=== PATIENT | female | born 1955 | race American Indian/Alaskan Native ===

== ENCOUNTER 2016-07-03 00:12 | Emergency (ER) | payer MEDICARE ==
[2016-07-03 02:44] LABS: Basophils % (Auto) 0.4 % (0.0-1.8); Eosinophils % (Auto) 0.4 % (0.0-4.3); Hematocrit 41.2 % (30.3-42.9); Hemoglobin 13.3 gm/dl (10.1-14.3); Mean Corpuscular HGB Conc 32 % (30-34); Mean Corpuscular Hemoglobin 26 pg (28-32); Mean Corpuscular Volume 82 fl (79-97); Platelet Count 246 K/mm3 (140-440); Red Blood Count 5.04 M/mm3 (3.65-5.03); Red Cell Distribution Width 15.4 % (13.2-15.2); White Blood Count 5.2 K/mm3 (4.5-11.0)
[2016-07-03 02:48] LABS: Anion Gap 20 mmol/L; Blood Urea Nitrogen 17 mg/dL (7-17); Calcium 9.3 mg/dL (8.4-10.2); Carbon Dioxide 26 mmol/L (22-30); Chloride 98.7 mmol/L (98-107); Glucose 98 mg/dL (65-100); Potassium 4.6 mmol/L (3.6-5.0); Sodium 140 mmol/L (137-145)
[2016-07-03 04:16] VITALS: BP 156/63
[2016-07-03 04:55] LABS: Bacteria,Urine 2+ /HPF (Negative); Bilirubin,Urine NEG (Negative); Blood,Urine NEG (Negative); Ketones,Urine NEG (Negative); Leukocyte Esterase,Urine NEG (Negative); Mucus,Urine 1+ /HPF; Nitrite,Urine NEG (Negative); Protein,Urine <15 mg/dL mg/dL (Negative); Urobilinogen,Urine < 2.0 mg/dL (<2.0)
[2016-07-03 04:58] LABS: INR 0.91 (0.87-1.13)
--- NOTE | 2016-07-03 06:42 | Emergency Department Report ---
HPI - General Chief Complaint: Chest Pain Time Seen by Provider: 07/03/16 06:17 - HPI HPI: 60-year-old female presents to the emergency department from home with complaint of pain to the upper abdomen and lower chest has been going on for the past 4-5 days intermittently. This morning the pain was about 9 out of 10 and she felt like she had to remove brought to get relief. Associated with some shortness of breath and some nausea without vomiting. She thinks began after the patient received a steroid shot in her left knee for a knee sprain a few days ago. Patient has a history of arthritis, borderline diabetes, history of pancreatitis, degenerative disc disease. 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 She tried some Benadryl and some lemon with a lot of her symptoms without much relief. No recent travel or sick contacts at home. ED Past Medical Hx - Past Medical History Previous Medical History?: Yes Hx Hypertension: Yes (losartan) Hx Congestive Heart Failure: No Hx Diabetes: Yes (BORDERINE BUT TAKES NO MEDS) Hx Arthritis: Yes Hx Asthma: No Hx COPD: No Hx HIV: No Additional medical history: Pancreatitis, degenerative disc disease, Hernia - Surgical History Hx Cholecystectomy: Yes Additional Surgical History: arthroscopy right knee, tubal - Social History Smoking Status: Unknown if ever smoked - Medications Home Medications: Home Medications Medication Instructions Recorded Confirmed Last Taken Type Losartan [Cozaar] 12.5 mg PO QDAY 07/01/13 10/12/14 10/11/14 History Aspirin BABY CHEW TAB 81 mg PO DAILY 10/06/14 10/12/14 10/08/14 History ED Review of Systems ROS: Stated complaint: DIFFICULTY IN BREATHING, LOWER BACK,NECK, LEG PAIN Other details as noted in HPI Comment: All other systems reviewed and negative Constitutional: denies: chills, fever Eyes: denies: eye pain, eye discharge, vision change ENT: denies: ear pain, throat pain Respiratory: shortness of breath. denies: cough Cardiovascular: chest pain. denies: palpitations Gastrointestinal: abdominal pain, nausea. denies: vomiting Genitourinary: denies: urgency, dysuria, discharge Musculoskeletal: denies: back pain, joint swelling, arthralgia Skin: denies: rash, lesions Neurological: denies: headache, weakness, paresthesias Physical Exam - Physical Exam Vital Signs: Vital Signs 07/03/16 07/03/16 07/03/16 01:13 02:57 03:01 Temperature 98.9 F Pulse Rate 93 H 76 72 Respiratory 20 13 16 Rate Blood Pressure 159/85 168/63 O2 Sat by Pulse 97 97 Oximetry 07/03/16 07/03/16 03:30 04:00 Temperature Pulse Rate 68 66 Respiratory 22 23 Rate Blood Pressure 155/63 156/63 O2 Sat by Pulse 97 97 Oximetry Physical Exam: GENERAL: The patient is well-developed well-nourished. HEENT: Normocephalic. Atraumatic. Extraocular motions are intact. Patient has moist mucous membranes. Pupils equal reactive to light bilaterally. NECK: Supple. Trachea is midline. CHEST/LUNGS: Clear to auscultation. There is no respiratory distress noted. Midsternal chest pain is reproducible to palpation of the chest wall. HEART/CARDIOVASCULAR: Regular. There is no tachycardia. There is no gallop rub or murmur. ABDOMEN: Abdomen is soft. Patient has tenderness to palpation to the upper quadrants of the abdomen. No guarding rebound tenderness. Patient has normal bowel sounds. There is no abdominal distention. SKIN: Skin is warm and dry. NEURO: The patient is awake, alert, and oriented. The patient is cooperative. The patient has no focal neurologic deficits. The patient has normal speech. MUSCULOSKELETAL: There is no tenderness or deformity. There is no limitation range of motion. There is no evidence of acute injury. ED Course Vital Signs 07/03/16 07/03/16 07/03/16 01:13 02:57 03:01 Temperature 98.9 F Pulse Rate 93 H 76 72 Respiratory 20 13 16 Rate Blood Pressure 159/85 168/63 O2 Sat by Pulse 97 97 Oximetry 07/03/16 07/03/16 03:30 04:00 Temperature Pulse Rate 68 66 Respiratory 22 23 Rate Blood Pressure 155/63 156/63 O2 Sat by Pulse 97 97 Oximetry ED Medical Decision Making - Lab Data Result diagrams: 07/03/16 02:10 07/03/16 02:10 - EKG Data -: EKG Interpreted by Nh EKG shows normal: sinus rhythm (with sinus arrhythmia), axis (LAD), intervals, QRS complexes (LVH), ST-T waves Rate: normal - EKG Data When compared to previous EKG there are: previous EKG unavailable Interpretation: other (past rhythm with sinus arrhythmia, left axis deviation, LVH) - Radiology Data Radiology results: image reviewed interpreted by me: Chest x-ray did not show any acute process. Heart is normal shape and size. No effusions. No pneumothorax. No signs of pneumonia seen. - Medical Decision Making 60-year-old female presents with a 4-5 day history of pain to the upper abdomen and lower chest as well as some shortness of breath and nausea without vomiting. Patient had more of a chest pain workup through triage. Thus far she has had normal-appearing labs include negative troponins 2. EKG does not show any signs of illness elevation AK. Chest x-ray does not show any acute process. However when I see the patient, she also has involvement of the upper abdomen and it could be something referred such as pancreatitis. My plan was to order liver function tests, lipase, d-dimer to rule out PE, get an abdominal x-ray, and then reevaluate for disposition. However the patient says she is unable to stand hospital for further workup and prefers to follow-up with her primary care doctor and specialists. I explained to the patient that without any further labs or imaging, I cannot rule out any acute or emergent conditions within the abdomen or chest and that there are still possibilities for atypical AK or surgical abdomen. The patient understands the risks of leaving AGAINST MEDICAL ADVICE but says that she cannot stay and therefore signed the form to leave AMA. She understands she can return if she changes her mind or with any acute distress. - Differential Diagnosis AK, PE, CHF, pancreatitis Critical Care Time: No Critical care attestation.: If time is entered above; I have spent that time in minutes in the direct care of this critically ill patient, excluding procedure time. ED Disposition Clinical Impression: Chest pain Qualifiers: Chest pain type: unspecified Qualified Code(s): R07.9 - Chest pain, unspecified Abdominal pain Qualifiers: Abdominal location: upper abdomen, unspecified Qualified Code(s): R10.10 - Upper abdominal pain, unspecified Hypertension Qualifiers: Hypertension type: essential hypertension Qualified Code(s): I10 - Essential ( primary) hypertension Disposition: LEFT AGAINST MEDICAL ADVICE Is pt being admited?: No Condition: Stable Instructions: Chest Pain (ED), Acute Abdominal Pain (ED), Hypertension (ED) Additional Instructions: Please follow up with your primary care doctor, human resources office assistant and 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 Return to the emergency department if you change your mind about further evaluation of any acute distress. Referrals: PRIMARY CARE, [Primary Care Provider] - 3-5 Days Forms: AMA Form Time of Disposition: 06:42
--- NOTE | 2016-07-03 09:20 | XRay Report ---
CHEST 2 VIEWS INDICATION: Shortness of breath. COMPARISON: None similar. FINDINGS: PA and lateral chest radiographs demonstrate normal cardiomediastinal silhouette. No pleural effusions or CHF, though slight right lower lung scarring or atelectasis possible. Approximately 4 mm possible calcified granuloma may project about the right cardiophrenic angle on the frontal view. Demineralized bones with various bony degenerative changes. CONCLUSION: No acute chest process with few incidental findings, as above. Please also correlate with prior chest imaging, if available. Thank you for the opportunity to participate in this patient's care.
== END 2016-07-03 07:00 | disposition left against medical advice (07) ==
LOC: ED 00:12
DX: R07.9 Chest pain, unspecified (principal); R10.10 Upper abdominal pain, unspecified; I10 Essential (primary) hypertension; E11.9 Type 2 diabetes mellitus without complications; M19.90 Unspecified osteoarthritis, unspecified site; Z79.82 Long term (current) use of aspirin
CPT/HCPCS: 36415; 71020; 80048; 81001; 84484; 85025; 85610; 93005; 93010

== ENCOUNTER 2016-07-10 11:13 | Inpatient (IN) | payer MEDICARE ==
--- NOTE | 2016-07-10 12:05 | Emergency Department Report ---
Entered by JUVENAL CLAY, acting as scribe for CAMILO MCKENZIE PA. Chief Complaint: Chest Pain Stated Complaint: CHEST AND BACK PAIN Time Seen by Provider: 07/10/16 11:54 - HPI History of Present Illness: 60 y/o female presents c/o pressure pain on her chest that started 3 days ago but worsened this morning. Sx include difficulty swallowing, SOB, abd pain, jaw pain, cough, fever at night, chills at night and muscle aches but denies dysuria , N/V. Pt notes being seen at [facility], but they directed her to come here. - ROS Review of Systems: as noted in HPI - Exam Vital Signs: Vital Signs 07/10/16 11:26 Temperature 98 F Pulse Rate 88 Respiratory 16 Rate Blood Pressure 168/96 O2 Sat by Pulse 97 Oximetry Physical Exam: General:60 y/o female in no acute distress. Well-developed, well-nourished. CV: Regular rate and rhythm. No murmurs rubs or gallops. Lungs: Clear to auscultation bilaterally. Abdomen: No tenderness to palpation. No guarding or rebound tenderness. Normal bowel sounds. Mini Neuro: Alert and oriented 3. MSE screening note: Focused history and physical exam performed. Due to findings the following was ordered: ED Disposition for MSE Condition: Stable This documentation as recorded by the scribe,JUVENAL CLAY,accurately reflects the service I personally performed and the decisions made by me,CAMILO MCKENZIE PA.
[2016-07-10 13:55] LABS: Basophils % (Auto) 0.1 % (0.0-1.8); Eosinophils % (Auto) 0.9 % (0.0-4.3); Hematocrit 40.1 % (30.3-42.9); Hemoglobin 12.8 gm/dl (10.1-14.3); Mean Corpuscular HGB Conc 32 % (30-34); Mean Corpuscular Hemoglobin 26 pg (28-32); Mean Corpuscular Volume 82 fl (79-97); Platelet Count 331 K/mm3 (140-440); Red Blood Count 4.87 M/mm3 (3.65-5.03); Red Cell Distribution Width 14.9 % (13.2-15.2); White Blood Count 8.4 K/mm3 (4.5-11.0)
--- NOTE | 2016-07-10 14:03 | Ultrasound Report ---
Abdominal ultrasound. History: Upper quadrant pain. Findings: The abdominal aorta and liver are normal. The gallbladder has been removed. The common bile duct is normal in caliber. The kidneys are normal in size and configuration with no evidence of mass or hydronephrosis. The spleen is unremarkable. The pancreas is unremarkable. Impression: Negative study status post cholecystectomy.
[2016-07-10 14:11] LABS: Anion Gap 16 mmol/L; BUN/Creatinine Ratio 16.66; Blood Urea Nitrogen 15 mg/dL (7-17); Calcium 9.6 mg/dL (8.4-10.2); Carbon Dioxide 29 mmol/L (22-30); Chloride 104.3 mmol/L (98-107); Glucose 74 mg/dL (65-100); Sodium 145 mmol/L (137-145)
--- NOTE | 2016-07-10 19:30 | Emergency Department Report ---
ED Chest Pain HPI - General Chief Complaint: Chest Pain Stated Complaint: CHEST AND BACK PAIN Time Seen by Provider: 07/10/16 12:01 Source: patient, old records reviewed (patient was here 07/03/2016 with the same symptoms and the ED left AGAINST MEDICAL ADVICE) Mode of arrival: Ambulatory Limitations: No Limitations - History of Present Illness Initial Comments: 60-year-old female with a past medical history of hypertension, arthritis, borderline COPD, previous pancreatitis, degenerative disease and previous cholecystectomy presents to the hospital complains of chest pain and abdominal pain. Symptoms 3 weeks intermittently worse for the last 3 days. Patient states that the pain feels like a tightness around her lower chest and upper abdomen area. Intermittent without aggravating or alleviating factors. Moderate to severe in intensity and described as "a ton of bricks sitting on my chest this morning". Pain episodes lasts greater than 30 minutes at a time. Positive associated shortness of breath episodes and patient woke up sweating this morning. She denies nausea, vomiting, recent travel, or edema.. 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 Patient has had ongoing left posterior lower leg pain since being struck in the rear of the leg by a shopping cart and a fall over the last several weeks. Pain is worse with palpation and movement. Patient reports a negative exercise stress test done as outpatient last year. PMD: Dr. Joselito Schultz garbage truck dispatcher: [facility] Previous medical record reviewed and patient presented to the ER July 03 for similar symptoms, seen by Dr. 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 - Related Data Home Medications Medication Instructions Recorded Confirmed Last Taken RX: Losartan [Cozaar] 12.5 mg PO QDAY 07/01/13 10/12/14 10/11/14 Aspirin BABY CHEW TAB 81 mg PO DAILY 10/06/14 10/12/14 10/08/14 Allergies Allergy/AdvReac Type Severity Reaction Status Date / Time adhesive Allergy Hives Verified 07/01/13 05:58 codeine Allergy Hives Verified 07/01/13 05:58 iodine Allergy Hives Verified 07/01/13 05:58 Penicillins Allergy Hives Verified 07/01/13 05:58 steroids Allergy Hives Uncoded 07/01/13 05:58 ARYAN score - Aryan Score Age > 65: (0) No Aspirin use within the Past 7 Days: (1) Yes 3 or more CAD Risk Factors: (1) Yes 2 or more Angina events in past 24 hrs: (1) Yes Known CAD with more than 50% Stenosis: (0) No Elevated Cardiac Markers: (0) No ST Deviation Greater than 0.5mm: (0) No ARYAN Score: 3 ED Review of Systems ROS: Stated complaint: CHEST AND BACK PAIN Other details as noted in HPI Comment: All other systems reviewed and negative Other: Constitutional: No fevers chills Eyes: No eye pain visual changes ENT: No ear pain or throat pain Neck: Denies pain Respiratory: Denies cough wheezing Cardiovascular: Denies palpitations, syncope GI: Denies abdominal pain, nausea, vomiting, diarrhea : Denies dysuria Musculoskeletal: Denies back pain, Skin: Denies rash, lesions, erythema Neurologic: Denies headache, numbness, weakness Psychiatric: Denies suicidal ideation, hallucinations ED Past Medical Hx - Past Medical History Previous Medical History?: Yes Hx Hypertension: Yes (losartan) Hx Congestive Heart Failure: No Hx Diabetes: Yes (BORDERINE BUT TAKES NO MEDS) Hx Arthritis: Yes Hx Asthma: No Hx COPD: No Hx HIV: No Additional medical history: Pancreatitis, degenerative disc disease, Hernia - Surgical History Past Surgical History?: Yes Hx Cholecystectomy: Yes Additional Surgical History: arthroscopy right knee, tubal - Social History Smoking Status: Never Smoker Substance Use Type: None - Medications Home Medications: Home Medications Medication Instructions Recorded Confirmed Last Taken Type RX: Losartan [Cozaar] 12.5 mg PO QDAY 07/01/13 10/12/14 10/11/14 History Aspirin BABY CHEW TAB 81 mg PO DAILY 10/06/14 10/12/14 10/08/14 History ED Physical Exam - General Limitations: No Limitations - Other Other exam information: General: No limitations, patient is alert in no acute distress Head exam: Atraumatic, normocephalic Eyes exam: Normal appearance, pupils equal reactive to light, extraocular movements intact ENT: Moist mucous membrane, normal oropharynx Neck exam: Normal inspection, full range of motion, no meningismus nontender Respiratory exam: Clear to auscultation bilateral, no wheezes, rales, crackles. Reproducible tenderness to bilateral anterior lower ribs in xiphoid area Cardiovascular: Normal rate and rhythm, normal heart sounds Abdomen: Soft, nondistended, epigastric tenderness, normal bowel sounds, no rebound or guarding Extremity: Full range of motion, tenderness to distal posterior leg area to palpation, no edema Back: Normal Inspection, full range of motion, no tenderness Neurologic: Alert, oriented x3, cranial nerves intact, no motor or sensory deficit Psychiatric: normal affect, normal mood Skin: Warm, dry, intact ED Course Vital Signs 07/10/16 07/10/16 11:26 19:20 Temperature 98 F 97.9 F Pulse Rate 88 59 L Respiratory 16 20 Rate Blood Pressure 168/96 Blood Pressure 154/63 [Left] O2 Sat by Pulse 97 98 Oximetry - Reevaluation(s) Reevaluation #1: 07/10/16 19:37 Patient declined offer for pain medication pending V/Q exam Reevaluation #2: 07/10/16 21:03 The case was called in from home and had patient the table to perform V/Q and patient declined the test stating she wants her garbage truck dispatcher to be notified because of system is very sensitive to treatment. Pt refused VQ at this time. Reevaluation #3: 07/10/16 21:19 Patient now appears to be agreeable to VQ scan - Consultations Consultation #1: 07/10/16 21:[address] Tony diamond sizer garbage truck dispatcher [place] accounting specialist. He recommends imaging study to rule out PE. Patient's garbage truck dispatcher Dr. Pool is not diamond sizer this evening ED Medical Decision Making - Lab Data Result diagrams: 07/10/16 13:36 07/10/16 13:36 Lab Results 07/10/16 07/10/16 07/10/16 Range/Units 13:36 13:36 13:36 WBC 8.4 (4.5-11.0) K/mm3 RBC 4.87 (3.65-5.03) M/mm3 Hgb 12.8 (10.1-14.3) gm/dl Hct 40.1 (30.3-42.9) % MCV 82 (79-97) fl MCH 26 L (28-32) pg MCHC 32 (30-34) % RDW 14.9 (13.2-15.2) % Plt Count 331 (140-440) K/mm3 Lymph % (Auto) 31.6 (13.4-35.0) % [place] % (Auto) 6.2 (0.0-7.3) % Eos % (Auto) 0.9 (0.0-4.3) % Baso % (Auto) 0.1 (0.0-1.8) % Lymph # 2.7 (1.2-5.4) K/mm3 [place] # 0.5 (0.0-0.8) K/mm3 Eos # 0.1 (0.0-0.4) K/mm3 Baso # 0.0 (0.0-0.1) K/mm3 Seg Neutrophils % 61.2 (40.0-70.0) % Seg Neutrophils # 5.2 (1.8-7.7) K/mm3 D-Dimer (0-234) ng/mlDDU Sodium 145 (137-145) mmol/L Potassium 4.0 (3.6-5.0) mmol/L Chloride 104.3 (98-107) mmol/L Carbon Dioxide 29 (22-30) mmol/L Anion Gap 16 mmol/L BUN 15 (7-17) mg/dL Creatinine 0.9 (0.7-1.2) mg/dL Estimated GFR > 60 ml/min BUN/Creatinine Ratio 16.66 % Glucose 74 (65-100) mg/dL Calcium 9.6 (8.4-10.2) mg/dL Troponin T < 0.010 (0.00-0.029) ng/mL Lipase 51 (13-60) units/L 07/10/16 07/10/16 Range/Units 13:36 18:45 WBC (4.5-11.0) K/mm3 RBC (3.65-5.03) M/mm3 Hgb (10.1-14.3) gm/dl Hct (30.3-42.9) % MCV (79-97) fl MCH (28-32) pg MCHC (30-34) % RDW (13.2-15.2) % Plt Count (140-440) K/mm3 Lymph % (Auto) (13.4-35.0) % [place] % (Auto) (0.0-7.3) % Eos % (Auto) (0.0-4.3) % Baso % (Auto) (0.0-1.8) % Lymph # (1.2-5.4) K/mm3 [place] # (0.0-0.8) K/mm3 Eos # (0.0-0.4) K/mm3 Baso # (0.0-0.1) K/mm3 Seg Neutrophils % (40.0-70.0) % Seg Neutrophils # (1.8-7.7) K/mm3 D-Dimer 664.35 H (0-234) ng/mlDDU Sodium (137-145) mmol/L Potassium (3.6-5.0) mmol/L Chloride (98-107) mmol/L Carbon Dioxide (22-30) mmol/L Anion Gap mmol/L BUN (7-17) mg/dL Creatinine (0.7-1.2) mg/dL Estimated GFR ml/min BUN/Creatinine Ratio % Glucose (65-100) mg/dL Calcium (8.4-10.2) mg/dL Troponin T < 0.010 (0.00-0.029) ng/mL Lipase (13-60) units/L - EKG Data -: EKG Interpreted by Me (sinus bradycardia 53 LVH lateral T wave inversion) - EKG Data When compared to previous EKG there are: no significant change (compared to 2016) - Radiology Data Radiology results: report reviewed, image reviewed (cxr pa/lat: tracy) Abdominal ultrasound: Previous cholecystectomy, no acute findings Left leg Doppler: Negative for DVT VQ scan: neg PE - Medical Decision Making Plan to admit patient to the hospital for further cardiac workup and evaluation given description of chest pain however, patient does have a reproducible component to pain. Similar symptoms are presenting here July 03 and patient has an unchanged EKG and negative cardiac enzymes. D-dimer is elevated. Left leg DVT study was negative. VQ scan pending at disposition - Differential Diagnosis MSK pain, gastritis, pancreatitis, PE, [place], unstable angina Critical Care Time: No Critical care attestation.: If time is entered above; I have spent that time in minutes in the direct care of this critically ill patient, excluding procedure time. ED Disposition Clinical Impression: Chest pain, Abdominal pain, Hypertension, Elevated d-dimer Disposition: OP ADMITTED IP TO THIS HOSP Is pt being admited?: Yes Does the pt Need Aspirin: Yes Condition: Stable Time of Disposition: 19:46 (Dr Guerrero/hosp)
[2016-07-10] MEDS ORDERED: ASPIRIN PO ONE (19:47)
--- NOTE | 2016-07-10 20:52 | Admit Criteria Form ---
Admission Criteria Documentation: CHEST PAIN Clinical Indications for Admission to Inpatient Care (Place 'X' for any and all applicable criteria): Admission is indicated for chest pain and ANY ONE of the following(1)(2)(3)(4)(5 ): [ ]I. Angina with acute coronary syndrome (Also use Myocardial Infarction or Angina guideline) [ ]II. Hemodynamic instability [ X]III. Angina needing acute intervention as indicated by ALL of the following (11)(12): [X ]a) Unstable angina is present as indicated by angina that is ANY ONE of the following: [ ]i) New onset [ ]ii) Nocturnal [ ]iii) Prolonged at rest [X ]iv) Progressive [X ]b) Angina warrants acute intervention as indicated by ANY ONE of the following: [ ]i) Recurrent angina (e.g, not responding as previously to treatment) [ ]ii) Angina at rest or with low-level activities despite initial medical therapy [ ]iii) New or presumably new ST-segment depression on ECG [ ]iv) Signs or symptoms of heart failure (eg, dyspnea, pulmonary edema) [ ]v) New or worsening mitral regurgitation [ ]vi) Hemodynamic instability [ ]vii) Dangerous arrhythmia (eg, sustained ventricular tachycardia) [ ]viii) History of percutaneous coronary intervention within 6 months [ ]ix) History of coronary artery bypass graft surgery [X ]x) ARYAN risk score of 2 or greater[A] [ ]xi) History of Diabetes(14) [ ]xii) High-risk cardiac ischemia findings on noninvasive testing (e.g, echocardiogram, treadmill testing, nuclear scan) [ ]xiii) Chronic renal insufficiency (ie, estimated GFR less than 60 mL/min/1.732m) [ ]xiv) Left ventricular ejection fraction less than 40% [ ]IV. Evidence of VA (eg, cardiac biomarkers positive, ST-segment elevation on ECG) also use Myocardial Infarction Criteria Form. [ ]V. Pulmonary edema [ ]. Respiratory distress [ ]VII. Chest pain indicative of serious diagnosis other than coronary artery disease (eg, aortic dissection) [ ]VIII. Contraindications and/or Inappropriate clinical situations for Observational Care in patients with Chest Pain, when ANY ONE of the following is required: [ ]a) Patient with risk factor for pulmonary embolism, acute coronary syndrome and myocardial infarction (18) [ ]b) Patient with Pulmonary embolism require an average LOS of 4.3 days, therefore emergency department observation management is inappropriate 18,23 [ ]c) Painful condition/s in the elderly, have the highest rate of recidivism after emergency department observation management (10.8%) 20,21,22 [ ]d) Elevated cardiac biomarker requires intensive and exhaustive care (19) [ ]IX. General contraindications and/or Inappropriate clinical situations for Observational Care in patients with Chest Pain, when ANY ONE of the following is required: [ ]a) Prediction of prolongation of LOS based on ANY ONE of the following may be considered as a contraindication for observational care 2, 3, 4, 5, 6, 7, 8, 9, 10, 11 [ ]i) Age > 65 yrs. [ ]ii) Patient arriving by ambulance [ ]iii) Patient with high acuity [ ]iv) Patient requiring vital sign monitoring [ ]v) Patient on IV medication [ ]b) Systolic blood pressures 180mmHg 3,12 [ ]c) Patient with altered mental status including delirium and other alteration of consciousness, (3) [ ]d) Patient whose discharge disposition will be to a long term home or rehabilitation home should not be managed in Emergency Department Observation Unit. CMS rule requires 3 days hospital stay before such placement. 3,13 [ ]e) Patient with failure to thrive due to broad array of etiologies 3,16,17 [ ]f) Inability to ambulate 3,14 Extended stay beyond goal length of stay may be needed for (1)(28): [ ]a) Specific condition diagnosed after evaluation (eg, pulmonary embolism, aortic dissection) [ ]b) Unstable angina [ ]c) Continued suspicion of acute coronary syndrome with inability to complete needed cardiac evaluation (eg, patient clinically unable to undergo stress testing) [ ]d) Myocardial infarction (Contents from ANGINA and CHEST PAIN clinical indications for admission to inpatient care have been integrated in this form) The original [employer] content created by [employer] has been revised. The portions of the content which have been revised are identified through the use of italic text or in bold, and [employer] has neither reviewed nor approved the modified material. All other unmodified content is copyright [employer]. Please see references footnoted in the original [employer] edition 2016 Admission Criteria Met: Yes
[2016-07-10] MEDS ORDERED: MILK OF MAGNESIA PO PRN (20:59)
[2016-07-10] MEDS ORDERED: TYLENOL PO PRN (20:59)
[2016-07-10] MEDS ORDERED: DUONEB 0.5 MG-3 MG/3 ML SOLN IH PRN (20:59)
[2016-07-10] MEDS ORDERED: ZOFRAN IV PRN (20:59)
[2016-07-10] MEDS ORDERED: DULCOLAX PR PRN (20:59)
[2016-07-10] MEDS ORDERED: APRESOLINE IV PRN (21:04)
[2016-07-10] MEDS ORDERED: PROVENTIL IH PRN (21:14)
--- NOTE | 2016-07-10 22:38 | Nuclear Medicine Report ---
FINAL REPORT EXAM: NM LUNG SCAN PERF/VENT HISTORY: sob, cp, elevated ddimer TECHNIQUE: Ventilation-perfusion scan Perfusion study performed following intravenous administration 5 millicuries technetium MAA The ventilation scan was performed with 10 millicuries of venon 133 PRIORS: Correlation is made to the chest radiograph July 10, 2016 FINDINGS: No segmental or subsegmental defects are seen on the perfusion study. Distribution is homogeneous there is limitation on the ventilation study due to patient motion. Lung apices are incompletely included. The visualized portion of the lungs no evidence for air-trapping or significant IMPRESSION: Defect. Negative. No scintigraphic evidence for acute pulmonary embolus
--- NOTE | 2016-07-10 22:39 | XRay Report ---
FINAL REPORT EXAM: XR CHEST ROUTINE 2V HISTORY: cp, sob TECHNIQUE: Two view chest PA and lateral PRIORS: None. FINDINGS: Cardiac and mediastinal contours are unremarkable. No focal pulmonary infiltrate is identified. No pleural fluid collection seen. Pulmonary vasculature is unremarkable. IMPRESSION: Negative two-view chest
--- NOTE | 2016-07-11 09:38 | Vascular Lab Report ---
Left Lower Extremity Venous Duplex Study: Reason for Exam: Left leg pain. Comments on the Right: A limited duplex study was done of the proximal veins of the right lower extremity. All veins visualized are freely compressible without evidence of internal echogenicity. Flow is spontaneous and phasic throughout. No evidence of acute or chronic thrombus is seen in any of the vessels visualized. Comments on the Left: All veins visualized are freely compressible without evidence of internal echogenicity. Flow is spontaneous and phasic throughout. No evidence of acute or chronic thrombus is seen in any of the vessels visualized. Impression: No evidence of acute or chronic deep venous thrombosis in the left lower extremity.
--- NOTE | 2016-07-11 09:41 | History and Physical Report ---
History of Present Illness Date of examination: 07/10/16 Date of admission: 07/10/16 20:59 Chief complaint: My chest hurts History of present illness: 60 YO Female with HTN, Obesity, DM, Metabolic syndrome, OA, DJD, Pancreatitis presents to ED for evaluation. Pt states that she has been experiencing pain in her chest for the past three weeks with worsening symptoms over the past 3 days. Patient states that the pain feels like a tightness around her lower chest and upper abdomen area. Intermittent without aggravating or alleviating factors. Moderate to severe in intensity and described as "a ton of bricks sitting on my chest this morning". Pain episodes lasts greater than 30 minutes at a time. PT denies fever, chills, Palpitations, NVD, syncope, Prolonged immobility/travel, Individual/family history of DVT/PE, BRBPR, skin rashes, productive cough, unintentional weight loss, or recent ill contacts. Past History Past Medical History: diabetes, hypertension Past Surgical History: cholecystectomy, Other (right knee) Social history: . denies: smoking, alcohol abuse, prescription drug abuse Family history: diabetes, hypertension Medications and Allergies Allergies Allergy/AdvReac Type Severity Reaction Status Date / Time adhesive Allergy Hives Verified 07/01/13 05:58 codeine Allergy Hives Verified 07/01/13 05:58 iodine Allergy Hives Verified 07/01/13 05:58 Penicillins Allergy Hives Verified 07/01/13 05:58 steroids Allergy Hives Uncoded 07/01/13 05:58 Home Medications Medication Instructions Recorded Confirmed Last Taken Type Losartan [Cozaar] 12.5 mg PO QDAY 07/01/13 07/11/16 1 Day Ago History Aspirin BABY CHEW TAB 81 mg PO DAILY 10/06/14 07/11/16 1 Day Ago History Active Meds: Active Medications Acetaminophen (Tylenol) 650 mg PO Q4H PRN PRN Reason: Pain MILD(1-3)/Fever >100.5/[place] Albuterol (Proventil) 2.5 mg IH Q4HRT PRN PRN Reason: Wheezing Aspirin (Baby Aspirin) 81 mg PO QDAY [place] Bisacodyl (Dulcolax) 10 mg [place] QDAY PRN PRN Reason: Constipation unrelieved by MOM Hydralazine HCl (Apresoline) 10 mg IV Q6HR PRN PRN Reason: Hypertension Last Admin: 07/10/16 23:58 Dose: 10 mg Losartan Potassium (Cozaar) 12.5 mg PO QDAY [place] Magnesium Hydroxide (Milk Of Magnesia) 30 ml PO Q4H PRN PRN Reason: Constipation Ondansetron HCl (Zofran) 4 mg IV Q8H PRN PRN Reason: N/V unrelieved by Reglan Review of Systems All systems: negative Cardiovascular: chest pain Exam - Constitutional Vitals: Temp Pulse Resp BP Pulse Ox 98.4 F 75 18 170/78 95 07/11/16 09:00 07/11/16 09:00 07/11/16 09:00 07/11/16 09:00 07/11/16 09:00 General appearance: Present: mild distress, obese - EENT Eyes: Present: PERRL ENT: hearing intact, clear oral mucosa - Neck Neck: Present: supple, normal ROM - Respiratory Respiratory effort: normal Respiratory: bilateral: CTA - Cardiovascular Heart Sounds: Present: S1 & S2. Absent: rub, click - Extremities Extremities: pulses symmetrical, No edema Peripheral Pulses: within normal limits - Abdominal General gastrointestinal: Present: soft, non-tender, non-distended, normal bowel sounds Female genitourinary: Present: normal - Integumentary Integumentary: Present: clear, warm, dry - Musculoskeletal Musculoskeletal: gait normal, strength equal bilaterally - Psychiatric Psychiatric: appropriate mood/affect, intact judgment & insight - Neurologic Neurologic: CNII-XII intact, moves all extremities Results - Labs CBC & Chem 7: 07/10/16 13:36 07/10/16 13:36 Assessment and Plan - Patient Problems (1) ACS (acute coronary syndrome) Current Visit: Yes Status: Acute Plan to address problem: Admit to telemetry, serial cardiac enzymes, Cardiology team consulted for further cardiac workup. (2) Accelerated hypertension Current Visit: Yes Status: Acute Plan to address problem: Monitor bp q shift, supportive care. resume home medication (3) Metabolic syndrome Current Visit: Yes Status: Acute Plan to address problem: Pt counseled regarding cardiac diet, increased physical activity (4) Diabetes Current Visit: Yes Status: Acute Qualifiers: Diabetes mellitus type: D Diabetes mellitus complication status: D Diabetes mellitus complication detail: D Diabetic retinopathy severity: D Proliferative retinopathy type: P Diabetes mellitus macular edema: D Diabetes mellitus half-way insulin use: D Laterality: L Chronic kidney disease stage: C Plan to address problem: ADA diet, insulin, accu check (5) DVT prophylaxis Current Visit: Yes Status: Acute
[2016-07-11] MEDS ORDERED: LOSARTAN 12.5 MG PO SCH (10:00)
[2016-07-11] MEDS ORDERED: BABY ASPIRIN PO SCH (10:00)
[2016-07-11] MEDS ORDERED: COZAAR PO SCH ×2 (10:00→17:00)
[2016-07-11] MEDS ORDERED: NON-FORMULARY (Aspirin Baby Chew Tab 81 MG) PO SCH (10:00)
--- NOTE | 2016-07-11 10:01 | Discharge Summary ---
Providers - Providers Date of Admission: 07/10/16 20:59 Date of discharge: 07/11/16 Attending physician: BLAKE SALMON Primary care physician: DOLL WIG MAKER Hospitalization Condition: Stable Hospital course: 60 YO Female with HTN, Obesity, DM, Metabolic syndrome, presented to ED for evaluation of chest pain. She was monitored with serial cardiac enzyme and EKG. noted to have an elevated d-dimer. Her VQ scan was negative for PE, lower extremity Doppler did not show any acute DVT. Abdominal ultrasound revealed no gallstone, patient has history of cholecystectomy, lipase level was normal, hemoglobin was 12.8. Patient refuses to have a stress test, evaluated by cardiology and recommended outpatient follow-up. Patient did not have any symptom of nausea vomiting and was unable to tolerate diet. 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 She was discharged home in stable condition. Discharge Diagnosis and management: (1) chest pain, likely due to GERD Admited to telemetry, monitored with serial cardiac enzymes, Cardiology team was consulted for further cardiac workup. Abdominal US was unremarkable, VQ scan and lower extremity Doppler was negative too she refused stress test, cardiology recommended outpatient follow-up she will f/u out pt with her PCP (2) Accelerated hypertension Monitored bp q shift. resumed home medication Blood pressure improved (3) Metabolic syndrome Pt counseled regarding ADA diet and for increased physical activity (4) Diabetes type 2, diet-controlled managed with ADA diet, insulin, accu check A1c was 6.4, she will continue ADA diet at home. Disposition: DISCHARGED TO HOME OR SELFCARE Time spent for discharge: 32 minutes Core Measure Documentation - Palliative Care Palliative Care/ Comfort Measures: Not Applicable - Core Measures Any of the following diagnoses?: none Exam - Constitutional Vitals: Temp Pulse Resp BP Pulse Ox 98.4 F 75 18 160/78 95 07/11/16 09:00 07/11/16 09:00 07/11/16 09:00 07/11/16 09:00 07/11/16 09:00 General appearance: Present: no acute distress, obese - EENT Eyes: Present: PERRL ENT: hearing intact, clear oral mucosa - Neck Neck: Present: supple, normal ROM - Respiratory Respiratory effort: normal Respiratory: bilateral: CTA - Cardiovascular Heart Sounds: Present: S1 & S2. Absent: rub, click - Extremities Extremities: pulses symmetrical, No edema Peripheral Pulses: within normal limits - Abdominal General gastrointestinal: Present: soft, non-distended, normal bowel sounds - Integumentary Integumentary: Present: clear, warm, dry - Musculoskeletal Musculoskeletal: gait normal, strength equal bilaterally - Psychiatric Psychiatric: appropriate mood/affect, intact judgment & insight - Neurologic Neurologic: CNII-XII intact, moves all extremities Plan Activity: advance as tolerated Weight Bearing Status: Weight Bear as Tolerated Diet: low cholesterol, low salt, diabetic Follow up with: PRIMARY CARE, [Primary Care Provider] - 3-5 Days Prescriptions: Pantoprazole [Protonix TAB] 20 mg PO QDAY #30 tablet.
[2016-07-11] MEDS ORDERED: PROTONIX PO SCH (12:00)
--- NOTE | 2016-07-11 15:39 | Consultation ---
History of Present Illness Consult date: 07/11/16 Requesting physician: HERMAN BONILLA Consult reason: other (ACS) History of present illness: The pt is a 60 YO female with a past medical history significant for HTN, DM, OA , PUD (follows Dr. Win), obesity, anxiety. She is followed in our office by Dr. Pool. She presented with c/o chronic generalized pain and "inflammation" ( pain particularly in her bilateral knees d/t arthritis), headache, chest pain, nausea, and dizziness that have gotten progressively worse than her baseline x 1 week [employer]OOF [employer]ER. She describes her chest discomfort as both a constant, circumferential squeezing pain and heaviness that is sometimes aggravated by activity and a nonexertional, intermittent, epigastric stabbing pain which is aggravated by eating. She also reports SOB associated with her symptoms, but believe her SOB is secondary to anxiety attacks. She denies palpitations, orthopnea, PND, vomiting, diaphoresis, or syncope. Of note, stress test done 2015 was negative for ischemia, EF 69%; Echo 07/2015 demonstrated EF 55-60%, impaired relaxation, mild MR, trace TR. Past History Past Medical History: diabetes, hypertension Past Surgical History: cholecystectomy, Other (right knee) Social history: . denies: smoking, alcohol abuse, prescription drug abuse Family history: diabetes, hypertension Medications and Allergies Allergies Allergy/AdvReac Type Severity Reaction Status Date / Time adhesive Allergy Hives Verified 07/01/13 05:58 codeine Allergy Hives Verified 07/01/13 05:58 iodine Allergy Hives Verified 07/01/13 05:58 Penicillins Allergy Hives Verified 07/01/13 05:58 steroids Allergy Hives Uncoded 07/01/13 05:58 Home Medications Medication Instructions Recorded Confirmed Last Taken Type RX: Losartan [Cozaar] 12.5 mg PO QDAY 07/01/13 07/11/16 1 Day Ago History Aspirin BABY CHEW TAB 81 mg PO DAILY 10/06/14 07/11/16 1 Day Ago History Pantoprazole [Protonix TAB] 20 mg PO QDAY #30 tablet. 07/11/16 Unknown Rx Active Meds: Active Medications Acetaminophen (Tylenol) 650 mg PO Q4H PRN PRN Reason: Pain MILD(1-3)/Fever >100.5/[place] Albuterol (Proventil) 2.5 mg IH Q4HRT PRN PRN Reason: Wheezing Aspirin (Baby Aspirin) 81 mg PO QDAY [place] Bisacodyl (Dulcolax) 10 mg [place] QDAY PRN PRN Reason: Constipation unrelieved by MOM Hydralazine HCl (Apresoline) 10 mg IV Q6HR PRN PRN Reason: Hypertension Last Admin: 07/10/16 23:58 Dose: 10 mg Hydralazine HCl (Apresoline) 50 mg PO Q8HR [facility] Losartan Potassium (Cozaar) 12.5 mg PO QDAY [facility] Magnesium Hydroxide (Milk Of Magnesia) 30 ml PO Q4H PRN PRN Reason: Constipation Ondansetron HCl (Zofran) 4 mg IV Q8H PRN PRN Reason: N/V unrelieved by Reglan Pantoprazole Sodium (Protonix) 40 mg PO QDAY [facility] Review of Systems Constitutional: no weight loss, no weight gain, no fever, no chills, no sweats Ears, nose, mouth and throat: no ear pain, no nose pain, no sinus pressure, no sinus pain Cardiovascular: chest pain, lightheadedness, shortness of breath, dyspnea on exertion, high blood pressure, no orthopnea, no palpitations, no rapid/ irregular heart beat, no edema, no syncope, no paroxysmal nocturnal dyspnea, no leg edema Respiratory: shortness of breath, dyspnea on exertion, no cough, no congestion, no wheezing, no pain Gastrointestinal: nausea, no abdominal pain, no vomiting, no diarrhea, no constipation, no change in bowel habits Genitourinary Female: no pelvic pain, no flank pain, no dysuria, no urinary frequency, no urgency Musculoskeletal: low back pain (chronic), other (chronic bilateral knee pain ), no neck stiffness, no neck pain Integumentary: no rash, no pruritis, no redness, no sores, no wounds Neurological: no paralysis, no weakness, no parathesias, no numbness, no tingling, no syncope Psychiatric: anxiety Endocrine: no cold intolerance, no heat intolerance Hematologic/Lymphatic: no easy bruising, no easy bleeding, no lymphadenopathy Allergic/Immunologic: no urticaria, no wheezing Physical Examination Vital Signs Temp Pulse Resp BP Pulse Ox 98 F 88 16 168/96 97 07/10/16 11:26 07/10/16 11:26 07/10/16 11:26 07/10/16 11:26 07/10/16 11:26 General appearance: no acute distress HEENT: Positive: PERRL, Normocephaly, Mucus Membranes Moist Neck: Positive: neck supple, trachea midline Cardiac: Positive: Reg Rate and Rhythm, S1/S2 Lungs: Positive: Normal Exam, clear to auscultation, Normal Breath Sounds Neuro: Positive: Grossly Intact, Cranial Nerve 2-12 Intact Abdomen: Positive: Unremarkable, Soft, Active Bowel Sounds. Negative: Tender Skin: Positive: Clear. Negative: Rash, Wound Musculoskeletal: No Fluid Collection, No Pain, Normal Range of Motion Extremities: Present: normal, upper extr. pulses, lower extr. pulses. Absent: edema Results 07/10/16 13:36 07/10/16 13:36 - Imaging and Cardiology Echo: report reviewed EKG: report reviewed, image reviewed EKG interpretations - Telemetry EKG Rhythm: Sinus Bradycardia - EKG Sinus rhythms and dysrhythmias: sinus bradycardia Assessment and Plan Assessment: Chest pain / epigastric pain - ECG with NAF, Mendoza negative for AMI. Accelerated HTN Sinus bradycardia DM OA PUD Obesity Plan: Do not suspect ACS at this time. Resume home amlodipine and HCTZ. Increase losartan to home dosage, 50mg daily. Currently stable cardiac status. No indication for any further cardiac testing at this time. Pt may discharge home from cardiology standpoint. Recommend follow up in our office with Dr. Pool within 1-2 weeks of hospital discharge. The patient has been seen in conjunction with Dr. Pool who agrees with the assessment and plan of care.
[2016-07-11] MEDS ORDERED: APRESOLINE PO SCH (16:00)
[2016-07-11] MEDS ORDERED: NORVASC PO SCH (17:00)
[2016-07-11] MEDS ORDERED: MORPHINE IV ONE (18:00)
[2016-07-11] MEDS ORDERED: PROTONIX IV ONE (18:00)
[2016-07-11 18:13] VITALS: BP 165/74
[2016-07-12] MEDS ORDERED: HCTZ PO SCH (10:00)
== END 2016-07-11 19:12 | disposition home or self-care (01) | DRG 392 ==
LOC: ED 11:13 → 4A 20:59
PROVIDERS: ADMIT Internal Medicine; ATTEND Internal Medicine
DX: K21.9 Gastro-esophageal reflux disease without esophagitis (principal); E11.9 Type 2 diabetes mellitus without complications; E66.9 Obesity, unspecified; I10 Essential (primary) hypertension; E88.81 Metabolic syndrome and other insulin resistance; Z90.49 Acquired absence of other specified parts of digestive tract; Z79.82 Long term (current) use of aspirin; Z88.3 Allergy status to other anti-infective agents; Z88.0 Allergy status to penicillin; Z88.8 Allergy status to other drugs, medicaments and biological substances; Z83.3 Family history of diabetes mellitus; Z82.49 Family history of ischemic heart disease and other diseases of the circulatory system; Z68.38 Body mass index [BMI] 38.0-38.9, adult
CPT/HCPCS: 36415; 71020; 76700; 78582; 80048; 80061; 82962; 83036; 83690; 84484; 85025; 85379; 93005; 93010; A9540; A9558; C9113; J0360; J2270

== ENCOUNTER 2016-10-10 11:49 | Emergency (ER) | payer MEDICARE ==
[2016-10-10 12:16] VITALS: BP 197/95
--- NOTE | 2016-10-10 12:20 | Emergency Department Report ---
Entered by YAAKOV MARTINEZ, acting as scribe for KIKI KITCHEN NP. Stated Complaint: LEFT LEG PAIN/THROAT SWELLING Time Seen by Provider: 10/10/16 12:13 - HPI History of Present Illness: Pt is a 60 y.o. female who presents to ED for evaluation of several month hx of intermittent, sharp, shooting LLE pain. She additionally c/o back pain and a one month hx of pain with swallowing. Pt does not report chest pain, fever or chills. She began seeing GI one month ago. + abd pain - was supposed to have exploratory lap today but she had worsening L leg pain and she came to ED - ROS Review of Systems: Positive for LLE pain, back pain, pain with swallowing Negative for chest pain, fever or chills - Exam Vital Signs: Vital Signs 10/10/16 12:10 Temperature 97.8 F Pulse Rate 54 L Respiratory 18 Rate Blood Pressure 197/95 O2 Sat by Pulse 100 Oximetry Physical Exam: Constitutional: NAD, well-nourished Abdominal: LLQ TTP Neuro: A&Ox3 MSE screening note: Focused history and physical exam performed. Due to findings the following was ordered: Ordered: Labs and ultrasound ED Disposition for MSE Condition: Stable This documentation as recorded by the scribe,YAAKOV MARTINEZ,accurately reflects the service I personally performed and the decisions made by IMTIAZ glasgow TRACY M, NP.
[2016-10-10 12:45] LABS: Basophils % (Auto) 0.8 % (0.0-1.8); Eosinophils % (Auto) 1.2 % (0.0-4.3); Hemoglobin 12.6 gm/dl (10.1-14.3); Mean Corpuscular HGB Conc 32 % (30-34); Mean Corpuscular Hemoglobin 27 pg (28-32); Mean Corpuscular Volume 85 fl (79-97); Platelet Count 281 K/mm3 (140-440); Red Blood Count 4.62 M/mm3 (3.65-5.03); Red Cell Distribution Width 15.9 % (13.2-15.2); White Blood Count 7.9 K/mm3 (4.5-11.0)
[2016-10-10 12:56] LABS: INR 0.95 (0.87-1.13)
[2016-10-10 13:15] LABS: Alanine Aminotransferase 11 units/L (7-56); Alkaline Phosphatase 60 units/L (35-129); BUN/Creatinine Ratio 13.33; Blood Urea Nitrogen 12 mg/dL (7-17); Calcium 9.3 mg/dL (8.4-10.2); Carbon Dioxide 24 mmol/L (22-30); Glucose 84 mg/dL (65-100); Lipase 35 units/L (13-60); Total Protein 8.2 g/dL (6.3-8.2)
[2016-10-10 13:16] LABS: Anion Gap 20 mmol/L; Chloride 103.3 mmol/L (98-107); Potassium 4.1 mmol/L (3.6-5.0); Sodium 143 mmol/L (137-145)
[2016-10-10 14:52] LABS: Bilirubin,Urine NEG (Negative); Blood,Urine NEG (Negative); Ketones,Urine NEG (Negative); Leukocyte Esterase,Urine NEG (Negative); Mucus,Urine FEW /HPF; Nitrite,Urine NEG (Negative); Protein,Urine <15 mg/dL mg/dL (Negative); Urobilinogen,Urine < 2.0 mg/dL (<2.0); WBC,Urine < 1.0 /HPF (0.0-6.0)
--- NOTE | 2016-10-11 10:32 | Vascular Lab Report ---
Left Lower Extremity Venous Duplex Study: Reason for Exam: Pain of the left lower extremity. Comments on the Right: A limited duplex study was done of the proximal veins of the right lower extremity. All veins visualized are freely compressible without evidence of internal echogenicity. Flow is spontaneous and phasic throughout. No evidence of acute or chronic thrombus is seen in any of the vessels visualized. Comments on the Left: All veins visualized are freely compressible without evidence of internal echogenicity. Flow is spontaneous and phasic throughout. No evidence of acute or chronic thrombus is seen in any of the vessels visualized. Impression: No evidence of acute or chronic deep venous thrombosis in the left lower extremity.
== END 2016-10-10 20:10 | disposition left against medical advice (07) ==
LOC: ED 11:49
DX: R10.32 Left lower quadrant pain (principal); M54.9 Dorsalgia, unspecified; R13.10 Dysphagia, unspecified; Z53.21 Procedure and treatment not carried out due to patient leaving prior to being seen by health care provider
CPT/HCPCS: 36415; 80053; 81001; 83690; 85025; 85610; 85730